=== PATIENT | male | born 1980 | race Caucasian/White ===

== ENCOUNTER 2017-02-19 19:06 | Emergency (ER) | payer OTHER ==
[~2017-02-19 19:06] MED LIST: PROZAC20 M1 PO
== END 2017-02-19 19:45 | disposition home or self-care (01) ==
LOC: ED 19:06
DX: S61.412A Laceration without foreign body of left hand, initial encounter (principal); W26.0XXA Contact with knife, initial encounter; Y93.G1 Activity, food preparation and clean up; Y92.000 Kitchen of unspecified non-institutional (private) residence as the place of occurrence of the external cause
CPT/HCPCS: A4550; A4649

== ENCOUNTER 2020-03-06 17:24 | Emergency (ER) | payer OTHER ==
[~2020-03-06] VITALS: Ht 182.9 cm; Wt 115.9 kg
[2020-03-06] MEDS ORDERED: MIRALAX17 GM PO (17:39)
[2020-03-06] MEDS ORDERED: DULCOLAX STOOL100 M1 PO (17:39)
[2020-03-06] MEDS ORDERED: COZAAR25 M1 PO (17:39)
[2020-03-06 17:59] LABS: EOS # 0.2 (0.04-0.40); HEMATOCRIT 43.3 % (42.0-52.0); HEMOGLOBIN 14.8 g/dL (13.5-18.0); LYMPH# 2.4 (1.50-4.00); MEAN CELL VOLUME 92 fl (78-100); MEAN CORPUSCULAR HEMOGLOBIN 31 pg (27-31); MEAN CORPUSCULAR HGB CONC 34 g/dL (33-37); MEAN PLATELET VOLUME 9.3 fl (7.4-10.4); MONO # 0.6 (0.20-0.80); NEU # 5.9 (1.40-6.50); PLATELET COUNT 327 K/mm3 (130-400); RED BLOOD COUNT 4.73 M/mm3 (4.20-5.60); RED CELL DISTRIBUTION WIDTH 12.8 % (11.5-14.5); WHITE BLOOD COUNT 9.1 K/mm3 (4.8-10.8)
[2020-03-06 18:11] LABS: ALBUMIN 4.6 g/dL (3.5-5.0); POTASSIUM 3.8 mmol/L (3.5-5.1)
[2020-03-06 18:13] LABS: TOTAL PROTEIN 7.6 g/dL (6.4-8.3)
[2020-03-06 18:15] LABS: TOTAL BILIRUBIN 0.5 mg/dL (0.2-1.2)
[2020-03-06 19:05] LABS: URINE APPEARANCE CLEAR; URINE COLOR YELLOW; URINE PROTEIN(semi-quant) TRACE mg/dL (NEGATIVE)
[2020-03-06 19:06] LABS: URINE BILIRUBIN NEGATIVE (NEGATIVE); URINE BLOOD NEGATIVE (NEGATIVE); URINE GLUCOSE NEGATIVE (NEGATIVE); URINE KETONE NEGATIVE (NEGATIVE); URINE LEUKOCYTE ESTERASE NEGATIVE (NEGATIVE); URINE MUCUS PRESENT (NOT PRESENT); URINE NITRATE NEGATIVE (NEGATIVE); URINE UROBILINOGEN NORMAL (NORMAL); URINE WBC 0-1 /hpf (0-3)
[2020-03-06] MEDS ORDERED: GOOD SENSE OMEP20 MG PO (19:38)
[2020-03-06] MEDS ORDERED: ZOFRAN ODT4 MG PO (19:38)
[2020-03-06 19:48] VITALS: BP 138/85
== END 2020-03-06 19:48 | disposition home or self-care (01) ==
LOC: ED 17:24
PROVIDERS: Family Medicine
DX: K29.00 Acute gastritis without bleeding (principal); I10 Essential (primary) hypertension; F32.9 Major depressive disorder, single episode, unspecified; Z87.891 Personal history of nicotine dependence; Z90.89 Acquired absence of other organs
CPT/HCPCS: J1885; J3490